=== PATIENT | male | born 1985 | race Caucasian/White ===

== ENCOUNTER 2024-05-04 12:40 | Emergency (ER) | payer BC, SELFPAY ==
[2024-05-04 12:59] VITALS: BP 132/95
[2024-05-04 13:20] LABS: % Basophils 0.7 % (0-2); % Immature Granulocytes 0.7 % (0-0.5); % Lymphocytes 29.4 % (20.5-51.1); % Monocytes 8.9 % (1.7-9.3); % Neutrophils 57.3 % (42.2-75.2); Absolute Basophils 0.1 10^3/uL (0-0.2); Absolute Eosinophils 0.5 10^3/uL (0-0.7); Absolute Immature Granulocytes 0.1 10^3/uL (0-0.05); Absolute Lymphocytes 4.4 10^3/uL (1.2-3.4); Absolute Monocytes 1.3 10^3/uL (0.1-0.6); Absolute Neutrophils 8.6 10^3/uL (1.4-6.5); Hematocrit 43.5 % (39.0-52.0); Hemoglobin 15.6 g/dL (13.0-18.0); Mean Corp Hgb Conc. 35.9 g/dL (33.0-37.0); Mean Corpuscular Volume 89.1 fL (80.0-94.0); Nucleated Red Blood Cells % 0 % (-); Platelet Count 286 10^3/uL (130-400); Red Blood Cell Count 4.88 10^6/uL (4.70-6.10); Red Cell Dist. Width 12.2 % (11.5-14.5)
[2024-05-04 13:32] LABS: ALT (SGPT) 28 U/L (0-50); AST (SGOT) 21 U/L (17-59); Albumin 4.4 g/dl (3.5-5.0); Alkaline Phosphatase 69 U/L (38-126); Blood Urea Nitrogen 8 mg/dl (9-20); Calcium 9.7 mg/dl (8.4-10.2); Carbon Dioxide 26 mmol/L (22-30); Chloride 96 mmol/L (98-107); Glucose 96 mg/dl (70-99); Potassium 4.2 mmol/L (3.5-5.1); Sodium 130 mmol/L (135-145); Total Bilirubin 0.4 mg/dl (0.2-1.3); Total Protein 7.1 g/dl (6.3-8.2); eGFR > 60.00
[2024-05-04 14:40] VITALS: BMI 35.4
[2024-05-04 14:41] VITALS: BP 128/70
--- NOTE | 2024-05-04 14:56 | ED.GENMED ---
History of Present Illness
General
Chief Complaint: Dizziness
Source: patient
Exam Limitations: none
Time Seen by Provider: 05/04/24 14:34
History of Present Illness
History of Present Illness:
38-year-old male smoker presents with fatigue shortness of breath and lightheaded sensation today. He was standing at work and developed lightheadedness. This was preceded by 2 weeks worth of cough and URI symptoms. No fever. No chest pain. No
recent travel or surgery. No leg swelling or calf pain. No other complaints at this time
Phy Exam
Physical Exam
Physical Exam:
General: Well-appearing male no acute respiratory distress
HEENT: Normocephalic posterior pharynx is patent no asymmetry neck is supple no trismus or drooling
Heart: Regular rate and rhythm
Lungs: Inspiratory and expiratory wheeze bilaterally
Extremities: No cyanosis or edema
Skin: Warm no rash
Course
Orders/Labs/Results
Orders:
Orders
05/04/24 13:03
Electrocardiogram (*1) Urgent
Reason for Study: Shortness of Breath
EKG- Treatment ONCE
05/04/24 13:07
CMP [Comprehensive Metabolic Panel] Urgent
Complete Blood Count/With Diff Urgent
05/04/24 14:47
0.9% Sodium Chloride 1000 ml [Nss] 1,000 ml IV BOLUS
Ipratropium/Albuterol Sulfate [Duoneb] 3 ml INH R NOW STA
CR Chest - 2 Views Urgent
Comment:
Reason For Exam: cough, sob
Abnormal Lab Results
05/04/24
13:07
WBC 15.0 H 10^3/uL
(4.8-10.8)
MCH 32.0 H pg
(27.0-31.0)
Abs Immat Gran (auto) 0.1 H 10^3/uL
(0-0.05)
Absolute Neuts (auto) 8.6 H 10^3/uL
(1.4-6.5)
Absolute Lymphs (auto) 4.4 H 10^3/uL
(1.2-3.4)
Absolute Monos (auto) 1.3 H 10^3/uL
(0.1-0.6)
Immature Gran % 0.7 H %
(0-0.5)
Sodium 130 L mmol/L
(135-145)
Chloride 96 L mmol/L
(98-107)
BUN 8 L mg/dl
(9-20)
05/04/24 13:07
05/04/24 13:07
Vital Signs
Initial and Last Documented VS:
Initial Vital Signs
Temp Pulse Resp BP Pulse Ox
98.3 F 70 16 132/95 98
05/04/24 12:59 05/04/24 12:59 05/04/24 12:59 05/04/24 12:59 05/04/24 12:59
Last Documented Vital Signs
Temp Pulse Resp BP Pulse Ox
98.3 F 74 15 132/81 97
05/04/24 12:59 05/04/24 14:41 05/04/24 14:41 05/04/24 15:00 05/04/24 15:00
MDM/Problems Addressed
Differential Diagnosis Includes:
URI symptoms x 2 weeks now with shortness of breath and lightheadedness. Question bronchitis versus pneumonia versus viral illness versus electrolyte abnormality. Chest x-ray pending. DuoNeb ordered. Fluids ordered.
*Critical Care Note
Total Time (30-74mins, 75-104mins- exclusive of procedures): Not Applicable
Update Note
Update Note:
Chest x-ray clear. Patient received DuoNeb and is receiving fluids. Feels slightly improved after nebulizer. I suspect acute bronchitis. Lightheadedness earlier today could have been orthostasis or product of dehydration. Will send patient home
on inhaler and steroid
ED Attending Note
-
Portions of this chart may have been created with voice recognition software.� Occasional wrong word or��sound alike� substitutions may have occurred due to the inherent limitations of voice recognition software.
Discharge Plan
Departure
Patient Disposition: Home (Routine Discharge)
Date of Disposition: 05/04/24
Time of Disposition: 16:01
Patient with high blood pressure during this ER visit?: No
Discharge Problem:
Acute bronchitis
Prescriptions:
New
prednisone 20 mg tablet
40 mg PO DAILY 5 Days Qty: 10 0RF
albuterol sulfate [Ventolin HFA] 90 mcg/actuation HFA aerosol inhaler
1 inh inhalation Q6H PRN (Reason: shortness of breath or wheezing) Qty: 1 0RF
Referrals:
Nestor Miller MD [Family Provider] -
Stand Alone Forms: Return to Work
Activity Restrictions/Additional Instructions:
Rest. Stay hydrated. Use prednisone as directed. Use inhaler as needed for shortness of breath. Return if worse otherwise follow-up with your doctor
Interventions
Interventions:
*Risk Screen - Suicide Last Done: 05/04/24 12:59
*Neglect/Abuse Screening Last Done: 05/04/24 12:59
ED- Fall Risk Assessment Last Done: 05/04/24 14:42
*ED COVID-19 Vaccine History Last Done: 05/04/24 14:40
ED- Neurological Assessment Last Done: 05/04/24 14:42
ED- Cardiac Assessment Last Done: 05/04/24 14:44
Discharge Date and Time
Print Language: MOROCCAN
[2024-05-04 15:00] VITALS: BP 132/81
[2024-05-04] MEDS: DUONEB 3 ML INH (15:04)
[2024-05-04] MEDS: NSS 1000 IV (15:05)
[2024-05-04 16:00] VITALS: BP 151/81
== END 2024-05-04 17:03 | disposition home or self-care (01) ==
LOC: EMR 12:40
PROVIDERS: EMERGENCY PHYSICIAN Student in an Organized Health Care Education/Training Program; FAMILY PHYSICIAN Family Medicine
DX: J20.9 Acute bronchitis, unspecified (principal); F17.200 Nicotine dependence, unspecified, uncomplicated
CPT/HCPCS: 99283; 94640; 96360; 71046; 80053; 85025; 93005